=== PATIENT | female | born 1990 | race Caucasian/White ===

== ENCOUNTER 2018-07-02 09:36 | Inpatient (IN) ==
[2018-07-02] MEDS ORDERED: OXYTOCIN/DEXTROSE 5%-WATER 30 UNITS/500 ML BAG IV ONE (09:45)
[2018-07-02] MEDS ORDERED: RINGER'S SOLUTION,LACTATED 1,000 ML IV ONE (09:45)
[2018-07-02] MEDS ORDERED: DEXTROSE 5%-LACTATED RINGERS 1,000 ML IV PRN (09:45)
[2018-07-02] MEDS ORDERED: ONDANSETRON HCL/PF 2 MG/ML VIAL IV PRN ×2 (09:45→10:37)
[2018-07-02] MEDS ORDERED: NALOXONE HCL 1 MG/1 ML SYRG IV PRN (10:37)
[2018-07-02] MEDS ORDERED: BUPIVACAINE HCL/0.9 % NACL/PF 250 ML EP PRN (10:37)
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
[2018-07-02] MEDS ORDERED: fentaNYL CITRATE/PF 50 MCG/ML AMPUL IT SCH (10:45)
[2018-07-02 10:49] LABS: Cocaine Ur Negative (NEGATIVE); Urine Barbiturate Negative (NEGATIVE); Urine Benzodiazepines Negative (NEGATIVE); Urine Opiates Negative (NEGATIVE); Urine PCP Negative (NEGATIVE); Urine THC Negative (NEGATIVE)
--- NOTE | 2018-07-02 11:05 | ANES ---
Post Anesthesia Discharge - Transfer of Care Transfer of Care handoff given to nurse: Yes - Discharge from PACU Discharge from PACU when meets criteria: Yes - Comfortable post CSE
--- NOTE | 2018-07-02 11:09 | ANES ---
Anesthesia Procedure Note Procedure Note: ANESTHESIA PROCEDURE NOTE Date of Procedure: 07/02/2018 Time of procedure: 1045. Performed by: Panfilo Dinh CRNA, MSN Manager Control: Elizabeth Dowling RN. Preprocedure diagnosis: Active labor, labor pain. Post procedure diagnosis: Same. Procedure:Epidural for labor analgesia L3 4. Indications: Labor pain. Findings: See below. Details of the procedure: The patient was placed on the side of the bed in sitting positionand prepped with DuraPrep then draped in a sterile fashion. Lidocaine 1% was infiltrated to the skin and subcutaneous tissues at the level of the L3 4 interspace after the third attempt, as the patient was extremely nervous and jumped with each needle contact with the skin even though forewarned. An 18-gauge Touhy needle was used to approach the epidural space with loss of resistance technique. Once loss of resistance was achieved a 27- gauge spinal needle was passed through the epidural needle and CSF was contacted. After CSF returned, 20 mcg of fentanyl was injected in the spinal needle was removed the epidural catheter was then threaded approximately 4 cm in the epidural needle was removed. The catheter was taped in place and after careful aspiration 3 mL of 1.5% lidocaine with 1-200,000 epinephrine was injected without change in maternal heart rate or sensorium. . EBL: Minimal. Fluids: N/A. Specimen: N/A. Post procedure condition: The patient tolerated the remainder of procedure well, although remained extremely nervous, resulting in good relief. No complications were noted. Thank you for this consultation. Panfilo Dinh CRNA, MSN
--- NOTE | 2018-07-02 11:26 | ANES ---
Post Anesthesia Assessment - Vital Signs Airway Patency: Normal - Mental Status Level Of Consciousness: Awake, Alert, Appropriate - Pain Level Pain Score: 0 - N/V Assessment Nausea/Vomiting Presence: None Dehydration:: No
[2018-07-02 13:37] LABS: Hematocrit 39.7 % (37.0-47.0); Hemoglobin 13.2 gm/dL (12.5-16.0); Mean Cell Volume 90.4 fl (78-100); Mean Corpuscular Hemoglobin 30.1 pg (27-31); Mean Corpuscular Hgb Conc 33.2 g/dl (32-36); Mean Platelet Volume 12.4 fl (8-12.5); Neutrophil # 13.4 K/mm3 (1.3-6.0); Neutrophil % 81.5 % (42-75.0); Platelet Count 88 K/mm3 (150-450); Red Blood Count 4.39 M/mm3 (4.2-5.4); Red Cell Distribution Width 13.8 % (11.5-14.0); White Blood Count 16.4 K/mm3 (4.0-10.5)
[2018-07-02] MEDS ORDERED: OXYTOCIN 20 UNITS in RINGER'S SOLUTION,LACTATED 1,000 ML IV ONE (13:49)
[2018-07-02] MEDS ORDERED: ceFAZolin SODIUM/DEXTROSE,ISO 2 GM/50 ML BAG IV ONE (13:49)
[2018-07-02] MEDS ORDERED: RINGER'S SOLUTION,LACTATED 1,000 ML IV PRN ×2 (13:49→15:30)
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
[2018-07-02] MEDS ORDERED: SIMETHICONE 80 MG TAB.CHEW PO PRN (15:30)
[2018-07-02] MEDS ORDERED: BISACODYL 10 MG SUPP.RECT RC PRN (15:30)
[2018-07-02] MEDS ORDERED: oxyCODONE HCL/ACETAMINOPHEN 1 TAB TABLET PO PRN ×2 (15:30)
--- NOTE | 2018-07-02 15:36 | OR ---
Operative Report - Dictated Report Narrative: Pre Operative Diagnosis: 38 5/7 week intrauterine . Breech pres entation in labor. Post Operative Diagnosis: Same. Procedure Preformed: Primary Low Transverse Section Surgeon: Rian Carranza DO Steel Sash Erector: OR Staff Anesthesia: Epidural, TAP block Estimated Blood Loss: 150 mL Urine Output: 100 mL clear urine Fluids Given: 800 mg of crystalloid Drains: Dickey to gravity Surgical Complications: None Specimens: Placenta to freezer Findings: Male born at 1442 on 07/02/2017 in roly breech presentation with Apgars 9 and 9, weighing 3407 g with left foot cord x1. Normal uterus, tubes, ovaries. Indication: 27-year-old 1 para 0 at 38-5/7 weeks presents to labor and delivery in active labor dilated to 5/90/-2 and noted to be in roly breech presentation at time of artificial rupture of membranes. Technique: The patient was taken to the operating room and placed in dorsal supine position with a left lateral tilt. After adequate epidural anesthesia, dickey catheter insertion,SCDs placed, and 2 g of Ancef given preoperatively, the abdominal cavity was entered via a modified Florencio-Gandhi incision. Two rolled laps were placed in the pericolic gutters on either side of the uterus. A transverse incision was made in the lower uterine segment and extended laterally and upwardly with digital traction. Clear fluid was noted upon amniotomy. The infant was delivered easily. The cord was clamped and cut and infant was handed off to awaiting counter top assembler. The placenta was allowed to deliver spontaneously. The uterus was cleared of clot and debris. Uterine incision was closed with 0 Vicryl using a running locked stitch. A second imbricating layer was placed. Excellent hemostasis was noted. Rolled laps were removed from the abdominal cavitiy. The peritoneum was closed with a running 3-0 Monocryl. The same suture was used to approximate the rectus and pyramidalis muscles. The fascia was closed with a running 0 Vicryl. The subcutaneous layer was closed with a running 3-0 Monocryl. The same suture was used to approximate the subdermal layer. The skin was closed with a running 4-0 Monocryl and Dermabond. Sponge, lap, needle, and instrument count were correct x 2. Disposition: The patient was transferred to post anesthesia care unit in good condition History for MU Definition: * The number of deliveries resulting in a live the patient experienced prior to current hospitalization * The previous delivery of live twins or any live multiple gestation is considered one live event. *If primagravida or nulliparous is documented select zero for the number of previous live births. Live Events: 0
--- NOTE | 2018-07-02 15:51 | ANES ---
Post Anesthesia Discharge - Transfer of Care Transfer of Care handoff given to nurse: Yes - Discharge from PACU Discharge from PACU when meets criteria: Yes
--- NOTE | 2018-07-02 15:52 | ANES ---
Post Anesthesia Assessment - Vital Signs Vitals: Last Vital Signs Temp 37.3 C 07/02/18 13:57 Pulse 85 07/02/18 13:57 Resp 16 07/02/18 13:57 BP 109/55 07/02/18 13:57 Pulse Ox 99 07/02/18 13:57 Airway Patency: Normal - Mental Status Level Of Consciousness: Awake - Pain Level Pain Score: 0 - N/V Assessment Nausea/Vomiting Presence: None Dehydration:: No
--- NOTE | 2018-07-02 15:54 | ANES ---
Anesthesia Procedure Note Procedure Note: ANESTHESIA PROCEDURE NOTE Date of procedure:[]. 07/02/2018 Time of procedure:[]. 1530 Performed by: Bertram Hester CRNA Timber Selector: [] Karol Dai RN . Preprocedure diagnosis: []. Status post section. Desire for postoperative analgesia Post procedure diagnosis: Same. Procedure:[] Ultrasound-guided bilateral tap block Indications: []. Postoperative analgesia Findings: [] Patient placed in the supine position in the PACU. Patient's right abdominal wall was prepped with ChloraPrep. Ultrasound was utilized to identify fascial layer between internal oblique and trans-abdominus muscles. A 20-gauge 4 inch regional block needle was advanced under ultrasound guidance till tip of needle was positioned just posterior to fascial layer. 20 mL of 0.25% Marcaine with epinephrine 1 200,000 was injected with adequate spread of local anesthesia noted. Procedure was then repeated on patient's left side. EBL: Minimal. Fluids: N/A. Specimen: N/A. Post procedure condition: The patient tolerated the procedure well. No complications were noted. Thank you for this consultation Bertram Hester CRNA
[2018-07-02] MEDS: HYDROcodone/ACETAMINOPHEN 1 EACH TABLET PO PRN ×2 (17:12→21:17)
[2018-07-02] MEDS: IBUPROFEN 800 MG TABLET PO PRN (18:24)
[2018-07-02] MEDS: DOCUSATE SODIUM 100 MG CAPSULE PO SCH (20:11)
[2018-07-03] MEDS: ENOXAPARIN SODIUM 40 MG/0.4 ML SYRG SC SCH ×2 (00:14→22:52)
[2018-07-03] MEDS: IBUPROFEN 800 MG TABLET PO PRN ×2 (00:30→08:57)
[2018-07-03] MEDS: HYDROcodone/ACETAMINOPHEN 1 EACH TABLET PO PRN ×4 (01:42→22:05)
[2018-07-03] MEDS: ONDANSETRON HCL/PF 2 MG/ML VIAL IV PRN ×3 (04:14→18:35)
[2018-07-03] MEDS: DOCUSATE SODIUM 100 MG CAPSULE PO SCH ×2 (08:57→21:16)
--- NOTE | 2018-07-03 09:40 | PN ---
Subjective - Date and Time Seen Date: 07/03/18 Time: 09:39 Objective - Vitals Vitals: Last Vital Signs Temp 36.4 C 07/03/18 07:45 Pulse 79 07/03/18 07:45 Resp 14 07/03/18 07:45 BP 124/75 07/03/18 07:45 Pulse Ox 98 07/03/18 07:45 Patient denies complaints. Tolerating regular diet. Ambulating without difficulty. Pain well controlled. Lochia wnl. Abdomen - soft, appropriately tender Incision - clean, dry, intact Uterus - firm, at umbilicus -1 No calf tenderness Impression: Post op day #1 s/p primary section. Plan: Continue routine post-operative/ care - Abnormal Lab Findings Abnormal Lab Findings: Abnormal Lab Results 07/02/18 Range/Units 13:10 WBC 16.4 H (4.0-10.5) K/mm3 Plt Count 88 L (150-450) K/mm3 Immature Gran % (Auto) 0.90 H (0.001-0.429) % Immature Gran # (Auto) 0.14 H (0.000-0.0310) K/mm3 Neutrophils % 81.5 H (42-75.0) % Lymphocytes % 12.7 L (20-51) % Neutrophils # 13.4 H (1.3-6.0) K/mm3 Cauti Physician Documentation - Urinary Catheter Management Urethral (Martinez) Date of Insertion: 07/02/18 Time of Insertion: 11:30 Assessment/Plan - Problems/Diagnosis (1) Labor established Problem: Acute (2) Breech, roly Problem: Acute Qualifiers: Fetus number: single or unspecified fetus Qualified Code(s): O32.1XX0 - Maternal care for breech presentation, not applicable or unspecified (3) Anemia affecting Problem: Acute Qualifiers: Trimester: third trimester Qualified Code(s): O99.013 - Anemia complicating , third trimester
[2018-07-04] MEDS: HYDROcodone/ACETAMINOPHEN 1 EACH TABLET PO PRN ×3 (02:09→16:39)
[2018-07-04] MEDS: IBUPROFEN 800 MG TABLET PO PRN (10:20)
[2018-07-04] MEDS: DOCUSATE SODIUM 100 MG CAPSULE PO SCH ×2 (10:21→22:33)
--- NOTE | 2018-07-04 12:56 | PN ---
Subjective - Date and Time Seen Date: 07/04/18 Time: 12:56 Objective - Vitals Vitals: Last Vital Signs Temp 36.4 C 07/04/18 01:30 Pulse 78 07/04/18 01:30 Resp 18 07/04/18 01:30 BP 116/67 07/04/18 01:30 Pulse Ox 99 07/04/18 01:30 Patient denies complaints. Ambulating well. Tolerating regular diet. Pain well controlled. Lochia wnl. Abdomen - soft, appropriately tender Incision - clean, dry, intact Uterus - firm, at umbilicus -2 No calf tenderness Impression: Post op day #2 s/p primary section. Plan: Continue routine post-operative/ care Cauti Physician Documentation - Urinary Catheter Management Urethral (Martinez) Date of Insertion: 07/02/18 Time of Insertion: 11:30 Assessment/Plan - Problems/Diagnosis (1) Labor established Problem: Acute (2) Breech, roly Problem: Acute Qualifiers: Fetus number: single or unspecified fetus Qualified Code(s): O32.1XX0 - Maternal care for breech presentation, not applicable or unspecified (3) Anemia affecting Problem: Acute Qualifiers: Trimester: third trimester Qualified Code(s): O99.013 - Anemia complicating , third trimester
[2018-07-04] MEDS: ENOXAPARIN SODIUM 40 MG/0.4 ML SYRG SC SCH (22:33)
[2018-07-05] MEDS: HYDROcodone/ACETAMINOPHEN 1 EACH TABLET PO PRN ×2 (00:27→18:57)
--- NOTE | 2018-07-05 09:08 | PN ---
Subjective - Date and Time Seen Date: 07/05/18 Time: 09:07 Objective - Vitals Vitals: Last Vital Signs Temp 36.4 C 07/05/18 02:38 Pulse 72 07/05/18 02:38 Resp 16 07/05/18 02:38 BP 113/59 07/05/18 02:38 Pulse Ox 97 07/05/18 02:38 Patient denies complaints. Ambulating without difficulty. Tolerating regular diet. Pain well controlled. Lochia wnl. Breast-feeding with good milk supply. Abdomen - soft, appropriately tender Incision - clean, dry, intact Uterus - firm, at umbilicus -3 No calf tenderness Impression: Post op day #3 s/p primary section. Infant not gaining weight as anticipated. Plan: Routine discharge instructions. If needs to stay an extra day will delay discharged tilt tomorrow. Cauti Physician Documentation - Urinary Catheter Management Urethral (Martinez) Date of Insertion: 07/02/18 Time of Insertion: 11:30 Assessment/Plan - Problems/Diagnosis (1) Labor established Problem: Acute (2) Breech, roly Problem: Acute Qualifiers: Fetus number: single or unspecified fetus Qualified Code(s): O32.1XX0 - Maternal care for breech presentation, not applicable or unspecified (3) Anemia affecting Problem: Acute Qualifiers: Trimester: third trimester Qualified Code(s): O99.013 - Anemia complicating , third trimester
[2018-07-05] MEDS: SENNOSIDES 8.6 MG TABLET PO PRN ×2 (09:16→20:55)
[2018-07-05] MEDS: DOCUSATE SODIUM 100 MG CAPSULE PO SCH ×2 (09:16→20:55)
[2018-07-05] MEDS: IBUPROFEN 800 MG TABLET PO PRN (09:16)
[2018-07-06] MEDS: ENOXAPARIN SODIUM 40 MG/0.4 ML SYRG SC SCH (01:22)
[2018-07-06] MEDS: IBUPROFEN 800 MG TABLET PO PRN (01:25)
[2018-07-06] MEDS: DOCUSATE SODIUM 100 MG CAPSULE PO SCH (08:16)
[2018-07-06 08:40] VITALS: BP 127/88
--- NOTE | 2018-07-06 10:22 | PN ---
Subjective - Date and Time Seen Date: 07/06/18 Time: 10:20 Objective - Vitals Vitals: Last Vital Signs Temp 36.7 C 07/06/18 08:15 Pulse 69 07/06/18 08:15 Resp 18 07/06/18 08:15 BP 127/88 07/06/18 08:15 Pulse Ox 98 07/06/18 08:15 Patient denies complaints. Ambulating without difficulty. Tolerating regular diet. Pain well controlled. Lochia wnl. Abdomen - soft, appropriately tender Incision - clean, dry, intact Uterus - firm, at umbilicus -3 No calf tenderness Impression: Post op day #4 s/p primary section. Plan: Routine discharge instructions Cauti Physician Documentation - Urinary Catheter Management Urethral (Martinez) Date of Insertion: 07/02/18 Time of Insertion: 11:30 Assessment/Plan - Problems/Diagnosis (1) Labor established Problem: Acute (2) Breech, roly Problem: Acute Qualifiers: Fetus number: single or unspecified fetus Qualified Code(s): O32.1XX0 - Maternal care for breech presentation, not applicable or unspecified (3) Anemia affecting Problem: Acute Qualifiers: Trimester: third trimester Qualified Code(s): O99.013 - Anemia complicating , third trimester
[2018-07-06] MEDS: HYDROcodone/ACETAMINOPHEN 1 EACH TABLET PO PRN (12:03)
== END 2018-07-06 13:30 | disposition home or self-care (01) | DRG 787 ==
LOC: OB 09:36 → MS 07-03 10:14
PROVIDERS: ADMIT Obstetrics & Gynecology; ATTEND Obstetrics & Gynecology
CPT/HCPCS: 36415; 59025; 80307; 85025; J2405